=== PATIENT | male | born 1990 ===

== ENCOUNTER 2017-08-29 06:54 | Emergency (ER) | payer OTHER ==
[2017-08-29 07:41] LABS: Hematocrit 46.3 % (42.0-52.0); Mean Platelet Volume 9.5 fL (7.4-10.4); Red Blood Cell (RBC) Count 6.92 mill/uL (4.70-6.10)
[2017-08-29 07:45] LABS: Bilirubin Negative (Negative); Blood, Urine Trace (Negative); Glucose, Urine (Dipstick) Negative (Negative); Ketone, Urine Negative (Negative); Nitrite Negative (Negative); Protein, Urine (Dipstick) Negative (Neg-Trace); Urobilinogen 0.2 mg/dL (0.2-1.0)
[2017-08-29 07:51] LABS: Bacteria/HPF None Seen HPF (None Seen); Hyaline Casts/LPF 0-3 HYALINE CAST LPF (0-3 Hyaline); RBC/HPF 0-3 HPF (0-3); Squamous Epithelial None Seen HPF (0-3); WBC/HPF 0-3 HPF (0-3)
[2017-08-29 08:02] LABS: ALT (SGPT) 17 U/L (8-55); AST (SGOT) 15 U/L (5-34); Alkaline Phosphatase 66 U/L (40-150); Anion Gap 11 mmol/L (10-20); BUN (Urea Nitrogen) 10 mg/dL (8.9-20.6); Bilirubin, Total 0.9 mg/dL (0.2-1.2); Calc. Creatinine Clearance 0 mL/min (70-130); Carbon Dioxide 28 mmol/L (22-29); Chloride 101 mmol/L (98-107); Estimated GFR-MDRD Greater than 90; Globulin 3.3 g/dL (2.4-3.5); Protein, Total 8.1 g/dL (6.0-8.3)
[2017-08-29 08:21] LABS: #Monocytes 0.9 thou/uL (0.11-0.59); %Basophils 0.1 % (0.0-1.0); %Eosinophils 0.2 % (0.0-10.0); %Lymphocytes 5.9 % (21.0-51.0); %Monocytes 5.4 % (0.0-10.0); Anisocytosis SLIGHT = 6-15 cells (100X) (0-5/hpf); Hypochromia SLIGHT = 6-15 cells (100X) (0-5/hpf); Microcytosis SLIGHT = 6-15 cells (100X) (0-5/hpf)
[2017-08-29] MEDS ORDERED: Pantoprazole 40 MG VIAL ONE (09:20)
--- NOTE | 2017-08-29 10:53 | CT ---
CT OF THE ABDOMEN AND PELVIS: Date: 08/29/17 COMPARISON: None. HISTORY: Abdominal pain with nausea and vomiting, pain. TECHNIQUE: Serial axial CT imaging is obtained at 5 mm intervals from lung bases through pubic symphysis with IV contrast. Coronal reformatted imaging obtained. FINDINGS: The imaged lung bases are unremarkable. There is no free intraperitoneal air or fluid seen. The liver, spleen, gallbladder, pancreas, adrenal glands, and kidneys are unremarkable. The appendix appears within normal limits. No evidence for bowel obstruction is seen. Detailed assessment of the bowel is slightly limited on th e basis of lack of oral contrast media. The vascular structures of the abdomen and pelvis appear patent. No abdominal or pelvic lymphadenopat hy is seen. The osseous structures demonstrate no acute findings. IMPRESSION: No acute findings. POS: [facility]US[facility]
[2017-08-29] MEDS ORDERED: ISOVUE-370 76%-LOCM 1 ML ONE (14:01)
== END 2017-08-29 10:34 | disposition home or self-care (01) ==
LOC: ERS 06:54
DX: R10.13 Epigastric pain (principal); D72.829 Elevated white blood cell count, unspecified
CPT/HCPCS: 74177; 80053; 81003; 81015; 83690; 85025; 96361; 96374; C9113